=== PATIENT | female | born 1940 | race Two or more races ===

== ENCOUNTER 2024-02-22 00:35 | Emergency (ER) | payer OTHER ==
[~2024-02-22] VITALS: Ht 152.4 cm; Wt 67.1 kg
[2024-02-22] MEDS ORDERED: LOSARTAN-HCTZ1 EACH PO (00:46)
[2024-02-22] MEDS ORDERED: ROSUVASTATIN CA10 MG PO (00:46)
[2024-02-22] MEDS ORDERED: TOPROL XL25 M1 PO (00:46)
[2024-02-22] MEDS ORDERED: ACETAMINOPHEN 500 MG GEL..CAP PO STA (01:16)
[2024-02-22] MEDS ORDERED: ACETAMINOPHEN 500 MG GEL..CAP PO ONE (01:19)
[2024-02-22 01:35] LABS: HEMATOCRIT 37.8 % (36.0-45.00); MEAN CELL VOLUME 87.8 fL (80.00-100.00); MEAN CORPUSCULAR HEMOGLOBIN 30.2 pg (27.00-32.0); MEAN CORPUSCULAR HGB CONC 34.4 g/dl (32.0-36.0); PLATELET COUNT 343 K/uL (150-450)
[2024-02-22] MEDS ORDERED: ZITHROMAX500 MG PO (02:23)
== END 2024-02-22 02:26 ==
LOC: ER 00:35
PROVIDERS: General Practice
DX: R00.2 Palpitations (principal); J02.9 Acute pharyngitis, unspecified; I10 Essential (primary) hypertension